=== PATIENT | female | born 1945 | race Caucasian/White ===

== ENCOUNTER 2016-11-10 16:41 | Emergency (ER) | payer MEDICARE, OTHER ==
[~2016-11-10] VITALS: Ht 172.7 cm; Wt 107.5 kg
[~2016-11-10 16:41] MED LIST: ASPI-605 PO; ATOR10TA PO; CARV3.12 PO; LEVO125T PO; LISI-607 PO
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
--- NOTE | 2016-11-10 18:20 | NUR ---
Doreen, EMT at for wound care.
--- NOTE | 2016-11-10 18:38 | NUR ---
Dr Mera at [facility] for an update and re-eval.
--- NOTE | 2016-11-10 19:09 | NUR ---
Patient discharged to home in stable condition. Written and verbal after care instructions given. Patient verbalizes understanding of instruction.
[2016-11-10 19:14] VITALS: BP 128/65
== END 2016-11-10 19:15 | disposition home or self-care (01) ==
LOC: ER 16:42
DX: S62.302A Unspecified fracture of third metacarpal bone, right hand, initial encounter for closed fracture (principal); S62.306A Unspecified fracture of fifth metacarpal bone, right hand, initial encounter for closed fracture; S52.501A Unspecified fracture of the lower end of right radius, initial encounter for closed fracture; M79.7 Fibromyalgia; R51 Headache; M19.90 Unspecified osteoarthritis, unspecified site; Z79.82 Long term (current) use of aspirin; W18.30XA Fall on same level, unspecified, initial encounter; Y93.89 Activity, other specified; Y92.89 Other specified places as the place of occurrence of the external cause; Y99.8 Other external cause status
CPT/HCPCS: 29125; 70450; 70486; 72125; 73110; 73130; 99284; A4606; Z7610